=== PATIENT | female | born 1965 | race Caucasian/White ===

== ENCOUNTER 2016-08-09 03:48 | Emergency (ER) | payer BC, OTHER ==
[~2016-08-09] VITALS: Ht 162.6 cm; Wt 78.7 kg
[2016-08-09] MEDS ORDERED: DIPH,PERTUSS(ACELL),TET VAC/PF 0.5 ML IM-VACC ONE ×2 (05:26→05:30)
[2016-08-09] MEDS ORDERED: LIDOCAINE 1%, 20ML SQ ONE (05:30)
[2016-08-09 06:49] LABS: BLOOD UREA NITROGEN 8 mg/dL (7-18)
[2016-08-09 07:47] VITALS: BP 110/67
== END 2016-08-09 08:15 | disposition home or self-care (01) ==
LOC: ED 05:30
DX: S81.011A Laceration without foreign body, right knee, initial encounter (principal); Z23 Encounter for immunization; W19.XXXA Unspecified fall, initial encounter; Y93.89 Activity, other specified; Y99.8 Other external cause status; Y92.828 Other wilderness area as the place of occurrence of the external cause
CPT/HCPCS: 12001; 36415; 80048; 82040; 85025; 85610; 85730; 90471; 90715